=== PATIENT | female | born 1980 | race Caucasian/White ===

== ENCOUNTER 2016-09-13 17:05 | Emergency (ER) | payer OTHER ==
[2016-09-13] MEDS ORDERED: IOPAMIDOL 370 (76%) 100 ML VIAL IV ONE (17:06)
[2016-09-13] MEDS ORDERED: SODIUM CHLORIDE 0.9% 1,000 ML ONE (18:09)
--- NOTE | 2016-09-13 19:19 | CT ---
INDICATION: Pleuritic chest pain COMPARISON: None. TECHNIQUE: Helical scan mode CT of the Thorax with 2 mm collimated images were obtained after uneventful intravenous contrast administration of 80 of Isovue-[id number]. Sagittal and coronal reformations with high resolution lung algorithm images were also created at this time. Maximal intensity projection images and 3-D volumetric sequences were created at a separate, dedicated workstation. DLP: 437.3 FINDINGS: There are no pulmonary arterial filling defects. A few scattered areas of dependent and atelectatic change. Otherwise lungs are clear. No pleural effusion. The central airways are widely patent. There is no axillary, mediastinal or hilar adenopathy. The heart and great vessels opacify normally. Limited evaluation of the upper abdomen demonstrates no gross abnormalities. Review of bone windows demonstrates no osteoblastic or lytic lesions. IMPRESSION: 1. Negative for pulmonary embolism. No specific cause for the patient's stated pleuritic chest pain. Close clinical and radiographic follow-up are recommended. Findings were called to Dr. Mcdonald at approximately 1915 hours on 09/13/2016.
--- NOTE | 2016-09-13 19:56 | US ---
VENOUS ULTRASOUND OF EXTREMITY Indications: Recent left ankle surgery. Comparison: None FINDINGS: Multiple grayscale, color-flow and duplex Doppler images during left lower extremity DVT ultrasound are obtained from the common femoral vein down through to the peroneal and posterior tibial veins. DEEP VENOUS THROMBOSIS: None. COMMON FEMORAL VEIN: Normal. PROXIMAL FEMORAL VEIN: Normal. MID TO DISTAL FEMORAL VEIN: Normal. POPLITEAL VEIN: Normal. PROXIMAL CALF VEINS: Normal. Incidental note is made of a heterogeneous hypoechoic structure within the left inner thigh measuring 2.3 x 1.5 cm. Internal blood flow is present. Patient states this has been there for 10 years. IMPRESSION: No deep venous thrombosis of the left leg. Palpable lump along the inner thigh as above. Differential considerations would include atypical lymph node or sebaceous cyst. Report was uploaded to the electronic medical record at approximately 1950 hours on 09/13/2016.
== END 2016-09-13 20:15 | disposition home or self-care (01) ==
LOC: ED 17:05
DX: R07.89 Other chest pain (principal); R00.2 Palpitations; J45.909 Unspecified asthma, uncomplicated
CPT/HCPCS: 82565; 71275; 99284 ×2; 96360; 96361; 93971; J7030; Q9967